=== PATIENT | male | born 2000 ===

== ENCOUNTER 2022-06-16 22:21 | Emergency (ER) ==
[2022-06-16] MEDS ORDERED: Ibuprofen 200 MG TAB ONE (22:48)
[2022-06-16] MEDS ORDERED: Acetaminophen 500 MG TAB ONE (22:48)
== END 2022-06-16 22:53 | disposition home or self-care (01) ==
LOC: CSHERS 22:21
DX: S02.2XXA Fracture of nasal bones, initial encounter for closed fracture (principal); W22.8XXA Striking against or struck by other objects, initial encounter
CPT/HCPCS: 99283